=== PATIENT | male | born 1990 | race Caucasian/White ===

== ENCOUNTER 2021-12-08 20:00 | Emergency (ER) | payer SELFPAY ==
[~2021-12-08] VITALS: Ht 167.7 cm; Wt 75.1 kg
[~2021-12-08 20:00] MED LIST: HYDR-34 PO
[2021-12-08] MEDS ORDERED: FAMO-119 PO (20:25)
[2021-12-08] MEDS ORDERED: PRD20T PO (20:25)
--- NOTE | 2021-12-08 20:25 | ED Integumentary General ---
General Chief Complaint: Allergic Reaction Stated Complaint: BILAT HAND AND ANKLE SWELLING/RASH Nursing Triage Note: PT ARRIVAL TO ER WITH COMPLAINT OF POSSIBLE ALLERGIC REACTION. PT STATES THAT HE HAD DENTAL WORK DONE THIS WEEK AND WAS STARTED ON PCN. PT WOKE UP IN PAIN THURSDAY AND TOOK 800 MG OF IBUPROFEN AND THEN GOT HIVES. PT TOOK BENADRYL WITH SYMPTOMS SUBSIDING. PT TODAY WOKE UP WITH SWOLLEN HANDS AND FEETS WITH ITCHING. PT DENIES TAKING IBUPROFEN WHICH HE BELIEVES CAUSED THE HIVES THURSDAY. Source: patient Exam Limitations: no limitations History of Present Illness Date Seen by Provider: Dec 08, 2021 Time Seen by Provider: 20:21 Initial Comments This is a 31-year-old male who presents for possible allergic reaction. He states that he took ibuprofen after going to the dentist and was having hives. This is the second time this is happened to him. He did take Benadryl which improved his symptoms but he still has rash and itching. He also feels like his hands are swollen. Timing/Duration: week Possible Cause: exposure to allergen Modifying Factors: improves with antihistamine Allergies and Home Medications Allergies Coded Allergies: No Known Drug Allergies (Unverified Allergy, Mild, 11/16/08) Patient Home Medication List Home Medication List Reviewed: Yes Hydrocodone Bit/Acetaminophen (Vicodin Es 7.5 Mg/325 Mg) 1 Ea Tablet, 1 TAB PO PRN Prescribed by: MORRIS DEY on 08/29/101811 Review of Systems Review of Systems Constitutional: no symptoms reported EENTM: no symptoms reported Respiratory: no symptoms reported Cardiovascular: no symptoms reported Musculoskeletal: no symptoms reported Skin: rash Past Pcyyaxe-Sthcvj-Ciwauf Hx Patient Social History Tobacco Use?: Yes Tobacco type used: Cigarettes Smoking Status: Current Everyday Smoker Use of E-Cig and/or Vaping dev: No Substance use?: No Alcohol Use?: Yes Alcohol type: Beer, Hard Liquor Alcohol Frequency: Several times a month Pt feels they are or have been: No Immunizations Up To Date Influenza Vaccine Up-to-Date: No; Not Current Physical Exam Vital Signs Vital Signs - First Documented 12/08/21 20:11 Temp 37.3 Pulse 98 Resp 20 B/P (MAP) 130/89 (103) Pulse Ox 99 O2 Delivery Room Air Capillary Refill : Less Than 3 Seconds General Appearance: WD/WN, no apparent distress HEENT: PERRL/EOMI, TMs normal, pharynx normal Neck: non-tender, supple Cardiovascular: regular rate, rhythm Respiratory: chest non-tender, lungs clear, normal breath sounds Gastrointestinal: normal bowel sounds Extremities: non-tender, normal inspection Neurologic/Psychiatric: technical artist II-XII nml as tested, oriented x 3 Skin: rash (Patient has mild urticaria on his lower extremities) Lymphatic: no adenopathy Progress/Results/Core Measures Results/Orders My Orders Orders - ALEX WEEMS Prednisone Tablet (Deltasone Tablet) (12/08/21 20:30) Diphenhydramine Tablet (Benadryl Tablet) (12/08/21 20:30) Famotidine Tablet (Pepcid Tablet) (12/08/21 20:30) Vital Signs/I&O 12/08/21 20:11 Temp 37.3 Pulse 98 Resp 20 B/P (MAP) 130/89 (103) Pulse Ox 99 O2 Delivery Room Air Blood Pressure Mean: 103 Departure Communication (Admissions) No evidence or suspicion of angioedema, anaphylaxis, infection. Patient will be treated symptomatically. I do not feel that intravenous medications are indicated. Impression Primary Impression: Allergic reaction Disposition: HOME, SELF-CARE Condition: Stable Departure-Patient Inst. Decision time for Depature: 20:23 Referrals: [facility] [place]) Primary Care Physician Patient Instructions: Drug Allergy Add. Discharge Instructions: Return to the emergency room with any severe changes or worsening of symptoms. All discharge instructions reviewed with patient and/or family. Voiced understanding. Scripts Famotidine (Pepcid) 20 Mg Tablet 20 MG PO BID for 5 Days, #10 TAB Prov: ALEX WEEMS 12/08/21 Prednisone (Prednisone) 20 Mg Tab 20 MG PO BID for 5 Days, #10 TAB Take 3 tabs(60mg)daily, decrease by 1/2 tab(10mg)daily. Prov: ALEX WEEMS 12/08/21 ALEX WEEMS Dec 08, 2021 20:25
[2021-12-08] MEDS ORDERED: predniSONE 20 MG TAB PO ONE (20:30)
[2021-12-08] MEDS ORDERED: FAMOTIDINE 20 MG (PEPCID) TABLET PO ONE (20:30)
[2021-12-08] MEDS ORDERED: diphenhydrAMINE 25 MG TAB (BENADRYL) PO ONE (20:30)
[2021-12-08 20:47] VITALS: BP 126/75
== END 2021-12-08 20:47 | disposition home or self-care (01) ==
LOC: EDUNIT# 20:00 → ER 20:02
DX: T78.40XA Allergy, unspecified, initial encounter (principal); F17.210 Nicotine dependence, cigarettes, uncomplicated
CPT/HCPCS: 99283

== ENCOUNTER 2021-12-30 16:01 | Emergency (ER) | payer SELFPAY ==
[~2021-12-30] VITALS: Ht 165 cm; Wt 72.0 kg
[~2021-12-30 16:01] MED LIST changes: +FAMO-119 PO; +PRD20T PO
--- NOTE | 2021-12-30 16:13 | ED Upper Extremity ---
General Chief Complaint: Upper Extremity Stated Complaint: FALL/L ELBOW SWELLING Source: patient Exam Limitations: no limitations (ACACIA ZHU APRN) History of Present Illness Date Seen by Provider: Dec 30, 2021 Time Seen by Provider: 16:11 Initial Comments Patient was canoeing on Thursday 48 hours ago when he fell onto a flexed left elbow. He now has swelling redness pain and discharge from the dorsal aspect of the left elbow over the olecranon process. No fevers or chills. Onset: other (48 hours ago) Severity: moderate Pain/Injury Location: left elbow Method of Injury: fell Modifying Factors: Worse With Movement (ACACIA ZHU APRN) Allergies and Home Medications Allergies Coded Allergies: No Known Drug Allergies (Unverified Allergy, Mild, 11/16/08) Patient Home Medication List Home Medication List Reviewed: Yes (ACACIA ZHU APRN) Cephalexin (Cephalexin) 500 Mg Tablet, 500 MG PO QID Prescribed by: ACACIA ZHU on 12/30/21 163 Doxycycline Hyclate (Doxycycline Hyclate) 100 Mg Tablet, 100 MG PO BID Prescribed by: ACACIA ZHU on 12/30/21 163 Famotidine (Pepcid) 20 Mg Tablet, 20 MG PO BID Prescribed by: Derek Li on 12/08/212024 Hydrocodone Bit/Acetaminophen (Vicodin Es 7.5 Mg/325 Mg) 1 Ea Tablet, 1 TAB PO PRN Prescribed by: MORRIS DEY on 08/29/101811 Hydrocodone/Acetaminophen (Hydrocodone-Acetamin 5-325 mg) 5 Mg-325 Mg Tablet, 1 TAB PO Q4H PRN for PAIN-MODERATE (5-7) Prescribed by: ACACIA ZHU on 12/30/21 163 Prednisone (Prednisone) 20 Mg Tab, 20 MG PO BID Prescribed by: Derek Li on 12/08/212024 Review of Systems Constitutional: see HPI; No chills, No fever EENTM: see HPI Respiratory: no symptoms reported Cardiovascular: no symptoms reported Genitourinary: no symptoms reported Musculoskeletal: no symptoms reported Skin: see HPI Psychiatric/Neurological: No Symptoms Reported (ACACIA ZHU APRN) Physical Exam Vital Signs Vital Signs - First Documented 12/30/21 16:13 Temp 37.7 Pulse 98 Resp 18 B/P (MAP) 135/72 (93) Pulse Ox 98 (ERIC EAST MD) Vital Signs Capillary Refill : (ACACIA ZHU APRN) Height, Weight, BMI Height: '" Weight: lbs. oz. kg; 26.00 BMI Method:Stated General Appearance: WD/WN, no apparent distress HEENT: PERRL/EOMI, normal ENT inspection Respiratory: no respiratory distress, no accessory muscle use Shoulder: normal inspection, non-tender Elbow/Forearm: Left, pain, soft tissue tenderness, swelling (Erythema and edema as well as a small punctate wound to the olecranon process of the left elbow) Hand: normal inspection, non-tender Neurologic/Psychiatric: alert, normal mood/affect, oriented x 3 Skin: normal color, warm/dry (ACACIA ZHU APRN) Progress/Results/Core Measures Results/Orders Micro Results Microbiology 12/30/21 Gram Stain - Final, Resulted 12/30/21 Wound Culture - Preliminary, Resulted Streptococcus pyogenes Grp A (ERIC EAST MD) Departure Impression Primary Impression: Septic olecranon bursitis of left elbow Disposition: 01 HOME, SELF-CARE Condition: Stable Departure-Patient Inst. Decision time for Depature: 16:31 (ACACIA ZHU APRN) Referrals: [facility] [place] Primary Care Physician Patient Instructions: Olecranon Bursitis (DC) Add. Discharge Instructions: 1. Return to ER for any concerns such as fevers or increasing redness 2. Follow-up with your doctor next week All discharge instructions reviewed with patient and/or family. Voiced un derstanding. Scripts Cephalexin (Cephalexin) 500 Mg Tablet 500 MG PO QID, #20 TAB Prov: ACACIA ZHU APRN 12/30/21 Doxycycline Hyclate (Doxycycline Hyclate) 100 Mg Tablet 100 MG PO BID, #20 TAB 0 Refills Prov: ACACIA ZHU APRN 12/30/21 Hydrocodone/Acetaminophen (Hydrocodone-Acetamin 5-325 mg) 5 Mg-325 Mg Tablet 1 TAB PO Q4H PRN for PAIN-MODERATE (5-7), #14 TAB must also fill keflex/doxycycline Prov: ACACIA ZHU APRN 12/30/21 Work/School Note: Work Release Form Date Seen in the Emergency Department: Dec 30, 2021 Return to Work: Jan 01, 2022 ATTENDING PHYSICIAN NOTE: I was physically present as attending physician in the emergency department during the care of this patient, but I was not directly involved in the decision making or delivery of care for this patient. (ERIC EAST MD) ACACIA ZHU APRN Dec 30, 2021 16:13 ERIC EAST MD Jan 01, 2022 06:50
[2021-12-30] MEDS ORDERED: HYDROcodone/APAP 5 MG/325 MG (LORTAB) TAB PO ONE (16:15)
[2021-12-30] MEDS ORDERED: DOXYCYCLINE 100 MG (VIBRAMYCIN) TABLET PO SCH (16:15)
--- NOTE | 2021-12-30 16:27 | Diagnostic Imaging Report ---
INDICATION: Trauma with left elbow pain. TECHNIQUE: AP and lateral and oblique views of the left elbow were obtained. FINDINGS: No fracture or acute bony abnormality is seen. Joint spaces are unremarkable. There is soft tissue swelling dorsally. IMPRESSION: No acute fracture or elevation of posterior fat pad. Soft tissue swelling is noted dorsally. Dictated by: Dictated on workstation # [id number]
[2021-12-30] MEDS ORDERED: CEPH500T PO (16:36)
[2021-12-30] MEDS ORDERED: ACHD5005 PO (16:36)
[2021-12-30] MEDS ORDERED: DOXY100T2 PO (16:36)
[2021-12-30 16:40] VITALS: BP 135/72
== END 2021-12-30 16:40 | disposition home or self-care (01) ==
LOC: EDUNIT# 16:01 → ER 16:03
DX: M70.22 Olecranon bursitis, left elbow (principal)
CPT/HCPCS: 73080; 87070; 87077; 87205

== ENCOUNTER 2022-01-02 15:18 | Observation (INO) | payer SELFPAY ==
[~2022-01-02] VITALS: Ht 165.1 cm; Wt 74.8 kg
[~2022-01-02 15:18] MED LIST changes: +ACHD5005 PO; +CEPH500T PO; +DOXY100T2 PO
--- NOTE | 2022-01-02 16:09 | ED Upper Extremity ---
General Stated Complaint: LEFT ARM SWELLING Source: patient Exam Limitations: no limitations History of Present Illness Date Seen by Provider: Jan 02, 2022 Time Seen by Provider: 16:07 Initial Comments Patient is a 31-year-old male who presents ED with left arm swelling and redness. Patient was seen here on Thursday secondary to a septic olecranon bursitis. Was placed on Keflex and doxycycline with no significant provement. Increased redness down the left hand and with erythematous streaking up to the left shoulder. Denies of fever, chills or significant pain. Had a negative x- ray. Up-to-date on his tetanus. Does report purulent drainage from the wound to the left posterior elbow. Patient went canoeing this past Thursday hitting his left arm on a rock. Culture tested positive for Streptococcus pyogenes Allergies and Home Medications Allergies Coded Allergies: No Known Drug Allergies (Unverified Allergy, Mild, 11/16/08) Patient Home Medication List Home Medication List Reviewed: Yes Cephalexin (Cephalexin) 500 Mg Tablet, 500 MG PO QID Prescribed by: ACACIA ZHU on 12/30/211635 Doxycycline Hyclate (Doxycycline Hyclate) 100 Mg Tablet, 100 MG PO BID Prescribed by: ACACIA ZHU on 12/30/21 163 Famotidine (Pepcid) 20 Mg Tablet, 20 MG PO BID Prescribed by: Derek Li on 12/08/212024 Hydrocodone Bit/Acetaminophen (Vicodin Es 7.5 Mg/325 Mg) 1 Ea Tablet, 1 TAB PO PRN Prescribed by: MORRIS DEY on 08/29/101811 Hydrocodone/Acetaminophen (Hydrocodone-Acetamin 5-325 mg) 5 Mg-325 Mg Tablet, 1 TAB PO Q4H PRN for PAIN-MODERATE (5-7) Prescribed by: ACACIA ZHU on 12/30/21 163 Prednisone (Prednisone) 20 Mg Tab, 20 MG PO BID Prescribed by: Derek Li on 12/08/212024 Review of Systems Constitutional: No chills, No diaphoresis, No malaise, No weakness EENTM: No ear pain, No blurred vision, No double vision Respiratory: No cough, No dyspnea on exertion Cardiovascular: No chest pain Gastrointestinal: abdominal pain, diarrhea, nausea, vomiting Genitourinary: No decreased output; discharge Musculoskeletal: joint swelling, muscle pain Skin: change in color All Other Systems Reviewed Negative Unless Noted: Yes Physical Exam Vital Signs Vital Signs - First Documented 01/02/22 15:50 Temp 36.7 Pulse 88 Resp 16 B/P (MAP) 116/82 (93) O2 Delivery Room Air Capillary Refill : Height, Weight, BMI Height: '" Weight: lbs. oz. kg; 26.00 BMI Method:Stated General Appearance: WD/WN, no apparent distress HEENT: PERRL/EOMI, normal ENT inspection, TMs normal, pharynx normal Neck: non-tender, full range of motion, supple, normal inspection Cardiovascular: regular rate, rhythm, no edema, no gallop, no JVD Respiratory: chest non-tender, lungs clear, normal breath sounds, no respiratory distress, no accessory muscle use Gastrointestinal: normal bowel sounds, non tender, soft, no organomegaly Back: normal inspection, no CVA tenderness Elbow/Forearm: normal ROM (Left elbow and forearm. Topography Technician strength 5-5), Left, soft tissue tenderness, swelling Neurologic/Psychiatric: parole director II-XII nml as tested, no motor/sensory deficits, alert, normal mood/affect Skin: other (Swelling erythema to left upper extremity with erythema streaking to the left shoulder. Purulent drainage from a potential abscess to left olecranon. ) Progress/Results/Core Measures Results/Orders Lab Results Laboratory Tests Test 01/02/22 16:25 Range/Units White Blood Count 14.2 H 4.3-11.0 10^3/uL Red Blood Count 5.20 4.30-5.52 10^6/uL Hemoglobin 15.4 13.3-17.7 g/dL Hematocrit 44 40-54 % Mean Corpuscular Volume 85 80-99 fL Mean Corpuscular Hemoglobin 30 25-34 pg Mean Corpuscular Hemoglobin Concent 35 32-36 g/dL Red Cell Distribution Width 13.6 10.0-14.5 % Platelet Count 270 130-400 10^3/uL Mean Platelet Volume 9.2 9.0-12.2 fL Immature Granulocyte % (Auto) 0 % Neutrophils (%) (Auto) 76 H 42-75 % Lymphocytes (%) (Auto) 16 12-44 % Monocytes (%) (Auto) 6 0-12 % Eosinophils (%) (Auto) 1 0-10 % Basophils (%) (Auto) 0 0-10 % Neutrophils # (Auto) 10.8 H 1.8-7.8 10^3/uL Lymphocytes # (Auto) 2.2 1.0-4.0 10^3/uL Monocytes # (Auto) 0.9 0.0-1.0 10^3/uL Eosinophils # (Auto) 0.2 0.0-0.3 10^3/uL Basophils # (Auto) 0.1 0.0-0.1 10^3/uL Immature Granulocyte # (Auto) 0.1 0.0-0.1 10^3/uL Neutrophils % (Manual) 80 % Lymphocytes % (Manual) 11 % Monocytes % (Manual) 8 % Eosinophils % (Manual) 1 % Blood Morphology Comment NORMAL Erythrocyte Sedimentation Rate 54 H 0-15 MM/HR Sodium Level 136 135-145 MMOL/L Potassium Level 3.1 L 3.6-5.0 MMOL/L Chloride Level 98 98-107 MMOL/L Carbon Dioxide Level 25 21-32 MMOL/L Anion Gap 13 5-14 MMOL/L Blood Urea Nitrogen 13 7-18 MG/DL Creatinine 0.82 0.60-1.30 MG/DL Estimat Glomerular Filtration Rate 120 BUN/Creatinine Ratio 16 Glucose Level 80 70-105 MG/DL Lactic Acid Level 0.89 0.50-2.00 MMOL/L Calcium Level 9.6 8.5-10.1 MG/DL Corrected Calcium 9.6 8.5-10.1 MG/DL Total Bilirubin 0.7 0.1-1.0 MG/DL Aspartate Amino Transf (AST/SGOT) 13 5-34 U/L Alanine Aminotransferase (ALT/SGPT) 12 0-55 U/L Alkaline Phosphatase 82 40-136 U/L C-Reactive Protein High Sensitivity 18.43 H 0.00-0.50 MG/DL Total Protein 7.8 6.4-8.2 GM/DL Albumin 4.0 3.2-4.5 GM/DL My Orders Orders - ISAIAH MELTON Cbc With Automated Diff (01/02/22 16:02) Comprehensive Metabolic Panel (01/02/22 16:02) Hs C Reactive Protein (01/02/22 16:02) Erythrocyte Sedimentation Rate (01/02/22 16:02) Blood Culture (01/02/22 16:02) Lactic Acid Analyzer (01/02/22 16:02) Piperacillin Sodium/Tazobactam (Zosyn Vi (01/02/22 16:15) Vancomycin Injection (Vancomycin Injecti (01/02/22 16:15) Manual Differential (01/02/22 16:25) Blood Culture (01/02/22 17:00) Medications Given in ED Current Medications Medications Dose Ordered Sig/Adrianna Route Start Time Stop Time Status Last Admin Dose Admin Piperacillin Sod/ Tazobactam Sod 4.5 gm/Sodium Chloride 100 ml @ 200 mls/hr ONCE ONCE IV 01/02/22 16:15 01/02/22 16:44 DC 01/02/22 16:47 200 MLS/HR Vancomycin HCl 1000 mg/Sodium Chloride 250 ml @ 250 mls/hr ONCE ONCE IV 01/02/22 16:15 01/02/22 17:14 DC 01/02/22 16:48 250 MLS/HR Vital Signs/I&O 01/02/22 15:50 Temp 36.7 Pulse 88 Resp 16 B/P (MAP) 116/82 (93) O2 Delivery Room Air Departure Communication (Admissions) Time/Spoke to Admitting Phy: 17:[address] Wilkerson. Communication (PCP) Patient failed outpatient therapy for concern for septic olecranon bursitis left arm. Does have active purulent drainage from the left olecranon. Ultrasound was used did not show any significant fluid collection. Started on vancomycin and Zosyn. Elevated white blood count. Blood cultures pending. Positive for Streptococcus pyogenes on Thursday with swab. Due to failed outpatient therapy patient will be admitted to Dr. Wilkerson for IV antibiotics. Started on vancomycin with trough and pharmacy dosed. Pain medication as needed. Area was cleaned out and applied dressing. Patient vital signs stable patient was discussed with Dr. Martinez who recommends IV antibiotics at this time with no incision and drainage. If continue worsening symptoms will consider surgery. Impression Primary Impression: Septic olecranon bursitis of left elbow Disposition: ADMITTED INPATIENT Condition: Stable Admissions Decision to Admit Reason: Admit from ER (General) Decision to Admit/Date: Jan 02, 2022 Time/Decision to Admit Time: 17:21 Departure-Patient Inst. Referrals: [facility] [place]) Primary Care Physician ISAIAH MELTON Jan 02, 2022 16:09
[2022-01-02] MEDS ORDERED: VANCOMYCIN INJECTION 1,000 MG in NS (IVPB) 250 ML IV ONE (16:15)
[2022-01-02] MEDS ORDERED: PIPERACILLIN SODIUM/TAZOBACTAM 4.5 GM in NS (IVPB) 100 ML IV ONE (16:15)
[2022-01-02 16:44] LABS: BASOPHILS # (AUTO) 0.1 10^3/uL (0.0-0.1); BASOPHILS % (AUTO) 0 % (0-10); EOSINOPHILS # (AUTO) 0.2 10^3/uL (0.0-0.3); EOSINOPHILS % (AUTO) 1 % (0-10); HEMATOCRIT 44 % (40-54); HEMOGLOBIN 15.4 g/dL (13.3-17.7); LYMPHOCYTES # (AUTO) 2.2 10^3/uL (1.0-4.0); LYMPHOCYTES % (AUTO) 16 % (12-44); MEAN CORPUSCULAR HEMOGLOBIN 30 pg (25-34); MEAN CORPUSCULAR HGB CONC 35 g/dL (32-36); MEAN CORPUSCULAR VOLUME 85 fL (80-99); MEAN PLATELET VOLUME 9.2 fL (9.0-12.2); MONOCYTES # (AUTO) 0.9 10^3/uL (0.0-1.0); MONOCYTES % (AUTO) 6 % (0-12); NEUTROPHILS # (AUTO) 10.8 10^3/uL (1.8-7.8); NEUTROPHILS % (AUTO) 76 % (42-75); PLATELET COUNT 270 10^3/uL (130-400); WHITE BLOOD COUNT 14.2 10^3/uL (4.3-11.0)
[2022-01-02 17:06] LABS: POTASSIUM 3.1 MMOL/L (3.6-5.0)
[2022-01-02 17:08] LABS: CALCIUM 9.6 MG/DL (8.5-10.1)
[2022-01-02 17:09] LABS: TOTAL PROTEIN 7.8 GM/DL (6.4-8.2)
[2022-01-02 17:11] LABS: BILIRUBIN,TOTAL 0.7 MG/DL (0.1-1.0)
[2022-01-02 17:12] LABS: CREATININE SERUM 0.82 MG/DL (0.60-1.30)
[2022-01-02 17:16] LABS: ERYTHROCYTE SEDIMENTATION RATE 54 MM/HR (0-15)
[2022-01-02 17:26] LABS: EOSINOPHILS % (MANUAL) 1 %; LYMPHOCYTES % (MANUAL) 11 %; MONOCYTES % (MANUAL) 8 %; NEUTROPHILS % (MANUAL) 80 %
[2022-01-02 17:27] LABS: RBC MORPH NORMAL
[2022-01-02] MEDS ORDERED: VANCOMYCIN 500 MG/NS 100 ML IV ONE ×2 (19:00)
[2022-01-02] MEDS ORDERED: KETOROLAC 30 MG/ML VIAL IV PRN (19:00)
[2022-01-02] MEDS ORDERED: CATHETER FLUSH 10 ML SYR IVP PRN (19:00)
[2022-01-02] MEDS ORDERED: fentaNYL INJ 100 MCG/2 ML AMP IV PRN (19:00)
[2022-01-02] MEDS ORDERED: ACETAMINOPHEN 500 MG TAB (TYLENOL) PO PRN (19:00)
[2022-01-02 19:52] VITALS: BP 116/73
[2022-01-02] MEDS: CATHETER FLUSH 10 ML SYR IVP SCH (19:55)
--- NOTE | 2022-01-02 21:51 | Progress Note - Ortho ---
Progress Note Subjective Date of Exam 01/02/22 Chief Complaint Left Elbow Swelling with Drainage HPI/Events since last exam patient states has had recent swelling and drainage from elbow, placed on oral antibiotics initially but had progression of redness and soreness, admitted for IV antibiotics and has already started to note improvement Review of Systems no constitutional symptoms Allergies: Coded Allergies: Penicillins (Verified Allergy, Severe, Hives, 01/02/22) ibuprofen (Verified Allergy, Severe, Hives, 01/02/22) Home Meds Active Scripts Cephalexin (Cephalexin) 500 Mg Tablet, 500 MG PO QID, #20 TAB Prov:ACACIA ZHU APRN 12/30/21 Doxycycline Hyclate (Doxycycline Hyclate) 100 Mg Tablet, 100 MG PO BID, #20 TAB 0 Refills Prov:ACACIA ZHU APRN 12/30/21 Hydrocodone/Acetaminophen (Hydrocodone-Acetamin 5-325 mg) 5 Mg-325 Mg Tablet, 1 TAB PO Q4H PRN for PAIN-MODERATE (5-7), #14 TAB must also fill keflex/doxycycline Prov:ACACIA ZHU APRN 12/30/21 Famotidine (Pepcid) 20 Mg Tablet, 20 MG PO BID for 5 Days, #10 TAB Prov:ALEX WEEMS 12/08/21 Prednisone (Prednisone) 20 Mg Tab, 20 MG PO BID for 5 Days, #10 TAB Take 3 tabs(60mg)daily, decrease by 1/2 tab(10mg)daily. Prov:ALEX WEEMS 12/08/21 Hydrocodone Bit/Acetaminophen (Vicodin Es 7.5 Mg/325 Mg) 1 Ea Tablet, 1 TAB PO PRN, #14 TAB 0 Refills Prov:MORRIS DEY MD 08/29/10 Objective Exam Left Elbow: Swelling of olecranon bursa, small draining sinus with purulent material evident, full active range of motion of elbow, some tenderness over olecranon, no obvious fluid pocket Vital Signs Vital Signs Date Time Temp Pulse Resp B/P (MAP) Pulse Ox O2 Delivery O2 Flow Rate FiO2 01/02/22 19:52 37.3 88 20 116/73 (87) 98 Room Air 01/02/22 18:49 Room Air 01/02/22 15:50 36.7 88 16 116/82 (93) Room Air Lab Results Laboratory Tests 01/02/22 16:25: White Blood Count 14.2H, Red Blood Count 5.20, Hemoglobin 15.4, Hematocrit 44, Mean Corpuscular Volume 85, Mean Corpuscular Hemoglobin 30, Mean Corpuscular Hemoglobin Concent 35, Red Cell Distribution Width 13.6, Platelet Count 270, Mean Platelet Volume 9.2, Immature Granulocyte % (Auto) 0, Neutrophils (%) (Auto) 76H, Lymphocytes (%) (Auto) 16, Monocytes (%) (Auto) 6, Eosinophils (%) (Auto) 1, Basophils (%) (Auto) 0, Neutrophils # (Auto) 10.8H, Lymphocytes # (Auto) 2.2, Monocytes # (Auto) 0.9, Eosinophils # (Auto) 0.2, Basophils # (Auto) 0.1, Immature Granulocyte # (Auto) 0.1, Neutrophils % (Manual) 80, Lymphocytes % (Manual) 11, Monocytes % (Manual) 8, Eosinophils % (Manual) 1, Blood Morphology Comment NORMAL, Erythrocyte Sedimentation Rate 54H, Sodium Level 136, Potassium Level 3.1L, Chloride Level 98, Carbon Dioxide Level 25, Anion Gap 13, Blood Urea Nitrogen 13, Creatinine 0.82, Estimat Glomerular Filtration Rate 120, BUN/Creatinine Ratio 16, Glucose Level 80, Lactic Acid Level 0.89, Calcium Level 9.6, Corrected Calcium 9.6, Total Bilirubin 0.7, Aspartate Amino Transf (AST/SGOT) 13, Alanine Aminotransferase (ALT/SGPT) 12, Alkaline Phosphatase 82, C-Reactive Protein High Sensitivity 18.43H, Total Protein 7.8, Albumin 4.0 Assessment and Plan Assessment Left Infected Olecranon Bursa Problem List Left Infected Olecranon Bursa Plan Agree with conservative care and IV antibiotics; expect resolution with conserva tive management. If fails course of IV antibiotics, consider surgical intervention for debridement/bursectomy. Final Diagonsis Left Infected Olecranon Bursa Level of the visit: Level 3 Focused Exam Lactate Level 01/02/22 16:25: Lactic Acid Level 0.89 GAVIN SEIVLLA MD Jan 02, 2022 21:51
[2022-01-03] VITALS: BP 119/62
[2022-01-03 04:26] VITALS: BP 96/52
[2022-01-03 05:21] LABS: BASOPHILS # (AUTO) 0.1 10^3/uL (0.0-0.1); BASOPHILS % (AUTO) 1 % (0-10); EOSINOPHILS # (AUTO) 0.2 10^3/uL (0.0-0.3); EOSINOPHILS % (AUTO) 2 % (0-10); HEMATOCRIT 40 % (40-54); HEMOGLOBIN 13.5 g/dL (13.3-17.7); LYMPHOCYTES # (AUTO) 3.4 10^3/uL (1.0-4.0); LYMPHOCYTES % (AUTO) 26 % (12-44); MEAN CORPUSCULAR HEMOGLOBIN 29 pg (25-34); MEAN CORPUSCULAR HGB CONC 34 g/dL (32-36); MEAN CORPUSCULAR VOLUME 86 fL (80-99); MEAN PLATELET VOLUME 9.5 fL (9.0-12.2); MONOCYTES # (AUTO) 0.9 10^3/uL (0.0-1.0); MONOCYTES % (AUTO) 7 % (0-12); NEUTROPHILS # (AUTO) 8.2 10^3/uL (1.8-7.8); NEUTROPHILS % (AUTO) 64 % (42-75); PLATELET COUNT 268 10^3/uL (130-400); WHITE BLOOD COUNT 12.9 10^3/uL (4.3-11.0)
[2022-01-03 05:40] LABS: CALCIUM 9.2 MG/DL (8.5-10.1); CREATININE SERUM 0.82 MG/DL (0.60-1.30); POTASSIUM 3.4 MMOL/L (3.6-5.0)
[2022-01-03] MEDS: CATHETER FLUSH 10 ML SYR IVP SCH (06:24)
[2022-01-03] MEDS ORDERED: VANCOMYCIN 1250 MG/NS 250 ML IVPB IV SCH ×2 (07:00)
[2022-01-03 07:45] VITALS: BP 112/68
[2022-01-03] MEDS ORDERED: DOXY100T2 PO ×2 (10:23→12:04)
[2022-01-03] MEDS ORDERED: ACET-2267 PO (10:23)
[2022-01-03] MEDS ORDERED: CEPH500C PO (10:23)
[2022-01-03 11:47] VITALS: BP 109/69
[2022-01-03] MEDS ORDERED: CEFD300C3 PO (12:04)
--- NOTE | 2022-01-03 12:38 | Short Stay Summary-Hospitalist ---
CELESTINEPAMELAKEE A MED STUDENT 01/03/22 1238: History of Present Illness HPI/Chief Complaint Pt admitted on 01/02 for septic olecranon bursitis. Pt was seen in ED on 12/30 for swelling of left elbow after a skin break injury on a float trip. Pt was given Keflex and Doxycycline, but continued to have swelling and redness that spread up and down his arm. At that time wound cultures were done that revealed strep pyogenes. Pt presented to ED on 01/02 d/t this and was admitted to general medical floor on Vanc and Zosyn by the attending physician at that time. Ortho was consulted and did not recommend surgical intervention unless there was no improvement or worsening on empiric abx therapy. On 01/03 pt showed significant improvement and vanc and zosyn were stopped. Pt was medically stable for d/c. Pt was sent home on cefdinir and doxycycline. Pt advised to finish his current Rx for doxycycline and then start new Rx that was sent to pharmacy. F/u with PCP 1 week. Source: patient Exam Limitations: no limitations Date Seen 01/03/22 Time Seen by a Provider: 08:45 Attending Physician [place] PCP Admitting Physician: Maddy Wilkerson MD Attending Physician: Elena Driver DO Referring Physician Date of Admission Jan 02, 2022 at 17:19 Home Medications & Allergies Home Medications Reviewed patient Home Medication Reconciliation performed by pharmacy medication reconciliations communications technician and/or nursing. Patients Allergies have been reviewed. Allergies Allergies Coded Allergies Penicillins (Verified Allergy, Severe, Hives, 01/02/22) ibuprofen (Verified Allergy, Severe, Hives, 01/02/22) Past Medical/Social/Family Hx Patient Social History Tobacco Use?: Yes Tobacco type used: Cigarettes Smoking Status: Current Everyday Smoker Smokeless Tobacco Frequency: Never a User Use of E-Cig and/or Vaping dev: No E-Cig and/or Vaping Freq: Never a User Substance use?: Yes Substance type: Marijuana daily Substance frequency: Daily Alcohol Use?: Yes Alcohol type: Beer Alcohol Frequency: Several times a month Pt stated abuse/neglect: No Immunizations Up To Date Tetanus Booster (TDap): Less Than 5 Years Current Status Advance Directives: No Communicates: Verbally Primary Language: Czech Preferred Spoken Language: Czech Is interpretation needed?: No Implanted or Applied Medical D: None Review of Systems Constitutional: No chills, No fever EENTM: No hearing loss, No blurred vision Respiratory: No cough, No short of breath Cardiovascular: No chest pain, No palpitations Gastrointestinal: No abdominal pain, No nausea Genitourinary: No dysuria, No frequency Musculoskeletal: No back pain, No joint pain Skin: No dryness, No lesions Psychiatric/Neurological: Denies Headache, Denies Numbness Physical Exam Physical Exam Vital Signs Vital Signs - First Documented 01/02/22 01/02/22 15:50 19:52 Temp 36.7 Pulse 88 Resp 16 B/P (MAP) 116/82 (93) Pulse Ox 98 O2 Delivery Room Air Capillary Refill : Less Than 3 Seconds Height, Weight, BMI Height: '" Weight: lbs. oz. kg; 27.44 BMI Method:Stated General Appearance: No Apparent Distress, WD/WN HEENT: PERRL/EOMI, Pharynx Normal Neck: Full Range of Motion, Normal Inspection Respiratory: Chest Non Tender, Lungs Clear Cardiovascular: Regular Rate, Rhythm, No Murmur Gastrointestinal: Non Tender, Soft Back: Normal Inspection, No CVA Tenderness Extremity: Normal Capillary Refill, Other (Left elbow edema with surrounding erythema ) Neurologic/Psychiatric: Alert, Oriented x3 Skin: Normal Color, Warm/Dry Lymphatic: No Adenopathy Results Results/Procedures Labs Laboratory Tests 01/02/22 16:25 01/03/22 05:00 Patient resulted labs reviewed. Short Stay Diagnosis Discharge Diagnosis-Short Stay Admission Diagnosis Septic olecranon bursitis Final Discharge Diagnosis Septic olecranon bursitis Conclusion Plan Cefdinir and doxycycline Continue current doxycycline Rx and then start the one sent to pharmacy F/u with PCP 1 week Diagnosis/Problems Diagnosis/Problems (1) Septic olecranon bursitis of left elbow Status: Acute Assessment & Plan: Cefdinir and doxycycline F/u with PCP 1 week ELENA DRIVER DO 01/03/222051: History of Present Illness HPI/Chief Complaint CC: Left Olecranon Cellulitis HPI: This is a 31 yr old male who sustained an injury to the left elbow during a float trip. He failed Doxycycline antibiotic so he presented. He was started on Vancomycin and Zosyn. Ortho evaluated him to have no need for any incision and drainage. He was discharged in improved condition on Omnicef and Doxycycline. Source: patient Exam Limitations: no limitations Physical Exam Physical Exam General Appearance: No Apparent Distress, WD/WN, Chronically ill Respiratory: Lungs Clear Cardiovascular: Regular Rate, Rhythm Extremity: Other (Left elbow edema with surrounding erythema ) Short Stay Diagnosis Discharge Diagnosis-Short Stay Admission Diagnosis Left olecranon cellulitis Final Discharge Diagnosis Left olecranon cellulitis Conclusion Plan DC on abx Supervisory-Addendum Brief Verification & Attestation Participated in pt care: history, MDM, physical Personally performed: exam, history, MDM, supervision of care Care discussed with: Medical Student Procedures: n/a Results interpretation: Verified all documentation Verification and Attestation of Medical Student E/M Service A medical student performed and documented this service in my presence. I reviewed and verified all information documented by the medical student and made modifications to such information, when appropriate. I personally performed the physical exam and medical decision making. Elena Driver, Jan 03, 2022,20:51 KEE DEE MED STUDENT Jan 03, 2022 12:38 ELENA DRIVER DO Jan 03, 2022 20:52
[2022-01-03 12:40] VITALS: BP 109/69
[2022-01-04] MEDS ORDERED: TROUGH ORDER-PHARMACY XX NR (06:00)
== END 2022-01-03 12:02 | disposition home or self-care (01) ==
LOC: EDUNIT# 15:18 → ER 15:21 → 4TH 17:19 → UNDOADMOB 17:19 → 4TH 18:55 → UNDODISOB 01-03 12:40
PROVIDERS: ADMIT Family Medicine; ATTEND Internal Medicine
DX: M71.122 Other infective bursitis, left elbow (principal)
CPT/HCPCS: 36415; 80048; 80053; 83605; 85007; 85025; 85027; 85652; 86141; 87040; 96366; 96376; G0378